=== PATIENT | female | born 1995 | race Two or more races ===

== ENCOUNTER 2024-02-26 19:42 | Emergency (ER) | payer MEDICAID ==
[~2024-02-26] VITALS: Ht 162.6 cm; Wt 68.5 kg
[~2024-02-26 19:42] MED LIST: SULF800T23 PO
[2024-02-26 20:15] VITALS: BP 110/79; PULSE 83; RESP 20; O2SAT 99
== END 2024-02-26 22:10 | disposition home or self-care (01) ==
LOC: ER 19:42
DX: K64.9 Unspecified hemorrhoids (principal)